=== PATIENT | male | born 1945 | race Caucasian/White ===

== ENCOUNTER → 2017-06-15 | Outpatient (CLI) | payer OTHER ==
[~2017-06-15] MED LIST: FINA5TAB PO; FINA5TAB4 PO; HYDR25TA6 PO; HYDROCHLOROTHIAZIDE PO; MULT-658 PO; SIMV40TA3 PO; TAMS-11 PO; TRAZ50TA18 PO; [UNRECOGNIZED DRUG - OTHER] PO; bp med; hydrochlorothiazide PO; sleeping pill
== END | disposition home or self-care (01) ==
LOC: RAD 18:47
PROVIDERS: ATTEND Family Medicine
DX: M19.072 Primary osteoarthritis, left ankle and foot (principal)

== ENCOUNTER → 2017-08-03 | Outpatient (CLI) | payer OTHER ==
[~2017-08-03] MED LIST changes: +ALPR0.5T6 PO; +ATOR40TA78 PO
[2017-08-03 10:00] LABS: ALANINE AMINOTRANSFERASE 24 U/L (12-78); ALBUMIN 3.6 g/dL (3.4-5.0); CALCIUM 8.4 mg/dL (8.5-10.1); CHLORIDE 111 mmol/L (98-107); CREATININE 0.72 mg/dL (0.7-1.3)
[2017-08-03 10:03] LABS: ALKALINE PHOSPHATASE 92 U/L (45-117); TOTAL PROTEIN 7.2 g/dL (6.4-8.2)
[2017-08-03 10:14] LABS: ANION GAP 7 mmol/L (5-15)
== END | disposition home or self-care (01) ==
LOC: STAR 08:56
PROVIDERS: ATTEND Orthopaedic Surgery
DX: Z01.818 Encounter for other preprocedural examination (principal); M75.21 Bicipital tendinitis, right shoulder; M75.41 Impingement syndrome of right shoulder
CPT/HCPCS: 36415; 80053; 93005

== ENCOUNTER 2017-08-10 09:44 | Day surgery (SDC) | payer OTHER ==
[~2017-08-10] VITALS: Ht 182.9 cm; Wt 91.7 kg
[~2017-08-10 09:44] MED LIST changes: +FENTANYL PF 250 MCG/5ML ONE; +MIDAZOLAM 1 MG/ML, 2ML ONE
[2017-08-10 10:09] VITALS: BP 121/86
[2017-08-10] MEDS ORDERED: LACTATED RINGERS 1,000 ML IV SCH (10:13)
[2017-08-10] MEDS ORDERED: GABAPENTIN 300 MG CAPSULE PO ONE (10:30)
[2017-08-10] MEDS ORDERED: LIDOCAINE-MPF 1%, 2ML INFIL ONE (10:30)
[2017-08-10] MEDS ORDERED: SCOPOLAMINE PATCH, 1.5MG PATCH.TD72 TD ONE (10:30)
[2017-08-10] MEDS ORDERED: ACETAMINOPHEN 500 MG TABLET PO ONE (10:30)
[2017-08-10] MEDS ORDERED: OXYcodone IR 5MG TABLET PO ONE (10:30)
[2017-08-10] MEDS ORDERED: BUPIVACAINE/PF 0.5% ONE (11:05)
[2017-08-10] MEDS ORDERED: LIDOCAINE/PF 0.5% ,50ML ONE (11:06)
[2017-08-10] MEDS ORDERED: EPINEPHRINE 1 MG/ML, 1ML ONE (11:06)
[2017-08-10] MEDS ORDERED: EPHEDRINE 50 MG/ML, 1ML ONE (11:38)
[2017-08-10] MEDS ORDERED: CLINDAMYCIN 150 MG/ML, 6ML ONE (11:38)
[2017-08-10] MEDS ORDERED: DEXAMETHASONE 4 MG/ML, 1ML ONE (11:38)
[2017-08-10] MEDS ORDERED: SUCCINYLCHOLINE 20 MG/ML, 10ML ONE (11:38)
[2017-08-10] MEDS ORDERED: METOCLOPRAMIDE 5 MG/ML, 2ML ONE (11:38)
[2017-08-10] MEDS ORDERED: CEFAZOLIN 1,000 MG ONE (11:38)
[2017-08-10] MEDS ORDERED: PROPOFOL 10 MG/ML, 20ML ONE (11:38)
[2017-08-10] MEDS ORDERED: ROCURONIUM 10 MG/ML,10ML ONE (11:38)
[2017-08-10] MEDS ORDERED: VASOPRESSIN 20 UNIT/ML, 1ML ONE (11:38)
[2017-08-10] MEDS ORDERED: METOCLOPRAMIDE 5 MG/ML, 2ML IV PRN ×2 (12:00)
[2017-08-10] MEDS ORDERED: hydrALAzine 20 MG/ML, 1ML IV PRN ×2 (12:00)
[2017-08-10] MEDS ORDERED: KETOROLAC 30 MG/1 ML IV PRN ×2 (12:00)
[2017-08-10] MEDS ORDERED: MEPERIDINE/PF 25MG/0.5ML IVPush PRN ×2 (12:00)
[2017-08-10] MEDS ORDERED: OXYcodone 5 MG/5 ML ORAL.SOL UDC PO PRN ×2 (12:00)
[2017-08-10] MEDS ORDERED: HYDROmorphone 1 MG/ML, 1ML IV PRN ×2 (12:00)
[2017-08-10] MEDS ORDERED: ALBUTEROL SULFATE 2.5 MG/3 ML NPPB PRN ×2 (12:00)
[2017-08-10] MEDS ORDERED: PROMETHAZINE 25 MG/ML, 1ML IV PRN ×2 (12:00)
[2017-08-10] MEDS ORDERED: LABETALOL 5MG/ML, 20ML IV PRN ×2 (12:00)
[2017-08-10] MEDS ORDERED: FENTANYL PF 100 MCG/2ML IV PRN ×2 (12:00)
[2017-08-10] MEDS ORDERED: ONDANSETRON 2MG/ML, 2ML IVPush PRN ×2 (12:00)
[2017-08-10] MEDS ORDERED: LIDOCAINE 0.5%-EPI 1:200K, 50ML INFIL ONE (12:07)
[2017-08-10] MEDS ORDERED: BUPIVACAINE/PF-EPI 0.25% 1:200K INFIL ONE (12:08)
[2017-08-10] MEDS ORDERED: BUPIVACAINE/PF-EPI 0.5% 1:200K INFIL ONE (12:08)
[2017-08-10] MEDS ORDERED: ATORVASTATIN 40 MG TABLET PO SCH (21:00)
[2017-08-11] MEDS ORDERED: MULTIVITAMIN 1 TABLET PO SCH (09:00)
[2017-08-11] MEDS ORDERED: FINASTERIDE 5 MG TABLET PO SCH (09:00)
[2017-08-11] MEDS ORDERED: HYDROCHLOROTHIAZIDE 25 MG TABLET PO SCH (09:00)
[2017-08-11] MEDS ORDERED: TAMSULOSIN 0.4 MG CAP.ER.24H PO SCH (09:00)
== END 2017-08-10 16:30 | disposition home or self-care (01) ==
LOC: OUT 09:44
PROVIDERS: ATTEND Orthopaedic Surgery
DX: M75.111 Incomplete rotator cuff tear or rupture of right shoulder, not specified as traumatic (principal); M24.111 Other articular cartilage disorders, right shoulder; M94.211 Chondromalacia, right shoulder; M75.41 Impingement syndrome of right shoulder; M19.011 Primary osteoarthritis, right shoulder; M66.821 Spontaneous rupture of other tendons, right upper arm; N40.0 Benign prostatic hyperplasia without lower urinary tract symptoms; I10 Essential (primary) hypertension
CPT/HCPCS: 23430; 29822; 29824; 29826; 64415; C1713; J0171; J0330; J0690; J1100; J2001; J2250; J2704; J2765; J3010; J3490; J7120